=== PATIENT | female | born 1990 | race Hispanic/Latino ===

== ENCOUNTER 2023-02-24 11:15 | Inpatient (IN) | payer MEDICAID, SELFPAY ==
[2023-02-24] VITALS (18 sets, daily range): BP systolic 103–128; BP diastolic 65–82; PULSE 78–93; RESP 11–20; TEMP 36.1–36.9; O2SAT 96–99; BMI 31.1
[2023-02-24 11:05] LABS: ROM Internal Control Test YES-OK TO RESULT pt. (Internal QC); ROM Patient Test POSITIVE (Negative)
[2023-02-24] MEDS: Lactated Ringers 1,000 ML 999 ML IV (12:30)
[2023-02-24 13:12] LABS: Absolute Lymphocyte Count 1.33 X10^3/uL (0.83-4.51); Absolute Neutrophil Count 6.1 X10^3/uL (2.0-7.7); Basophil# 0.05 X10^3/uL; Basophil% 0.6 % (0-1); Eosinophil# 0.05 X10^3/uL; Eosinophils% 0.6 % (0-5); Hematocrit 37.3 % (37-47); Lymphocyte # 1.33 X10^3/ul (0.83-4.51); Lymphocyte % 16.6 % (19-41); Mean Corp Hgb Conc 32.2 g/dL (32-36); Mean Corpuscular Hgb 27.2 pg (27.0-32.0); Mean Corpuscular Volume 84.6 fL (81-99); Mean Platelet Vol. 12.2 fl (6.2-12.0); Monocyte# 0.46 X10^3/uL; Monocyte% 5.7 % (0-10); NRBC Flagged by Analyzer 0 % (0-5); Neutrophil # 6.06 X10^3/uL (2.7-7.7); Neutrophil % 75.6 % (47-70); Platelet Count 239 K/mm3 (150-450); RBC Distribution Width CV 15.8 % (11.6-14.6); RBC Distribution Width SD 48.3 fl (35.1-43.9); Red Blood Count 4.41 M/mm3 (4.2-5.4)
[2023-02-24] MEDS: Lactated Ringers 1,000 ML 150 ML IV ×2 (13:38→21:20)
[2023-02-24 14:12] LABS: Syphilis Antibodies Non-reactive
[2023-02-24] MEDS: Acetaminophen 500 MG Tablet 1000 MG PO ×2 (15:24→21:12)
[2023-02-24] MEDS: Sodium Citrate/Citric Acid 30 ML UDC PO (15:24)
--- NOTE | 2023-02-24 15:31 | PCM.HP.OB ---
HPI - General General Date of Admission: 02/24/23 Date of Service: 02/24/23 HPI Narrative FRANCISCO ROBBINS, is a 33 F who presents with LOF. Maternal Data Information Final SOUTH: 03/06/23 Gestational age: 38&4 PFSH PFSH Medical History History of pre-term labor Home Medications [id number] 1 mg tablet 1 tab PO DAILY Check with primary doctor 02/24/23 [History Last Taken Unknown] Allergy/AdvReac Type Severity Reaction Status Date / Time No Known Allergies Allergy Verified 02/24/23 12:58 Surgical History Previous section Social History Smoking Status: Never smoker History Elective abortions Hx Para 1 Spontaneous abortions Hx # Term Pregnancies Ectopic pregnancies Hx # Pregnancies Multiple births # of living children Vital Signs Vital Signs Vital Signs: 02/24/23 10:45 02/24/23 10:46 02/24/23 10:46 Temperature 98.4 F Temperature Source Pulse Rate 86 Respiratory Rate Blood Pressure 128/81 H Blood Pressure Mean BP Systolic 128 BP Diastolic 81 Blood Pressure Source Blood Pressure Position Blood Pressure Location Pulse Ox Oxygen Delivery Method 02/24/23 12:54 02/24/23 12:54 02/24/23 12:53 Temperature 98.2 F Temperature Source Pulse Rate 78 Respiratory Rate Blood Pressure 122/77 H Blood Pressure Mean BP Systolic 122 BP Diastolic 77 Blood Pressure Source Blood Pressure Position Blood Pressure Location Pulse Ox Oxygen Delivery Method 02/24/23 12:40 Temperature 98.2 F Temperature Source Temporal Pulse Rate 78 Respiratory Rate 16 Blood Pressure 122/77 H Blood Pressure Mean 92 BP Systolic BP Diastolic Blood Pressure Source Monitor Blood Pressure Position Semi-Fowlers Blood Pressure Location Right Arm Pulse Ox 99 Oxygen Delivery Method Room Air Weight Weight: 170 lb Body Mass Index (BMI) 31.1 Physical Exam Const alert, oriented x3 and no apparent distress Chest inspection of chest normal Resp normal respiratory effort GI soft to palpation, non-tender and non-distended Inspection: gravid external exam normal Labs Labs Labs: Blood Type O POSITIVE Antibody Screen NEGATIVE Hct 37.3 % (37-47) Hgb 12.0 g/dL (12.0-15.0) Syphilis Total Ab Non-reactive See [facility] H&P Assessment & Plan (1) Previous section: COMMENT: @ 38&4 (2) SROM (spontaneous rupture of membranes): PLAN: Plan Admit to L&D SROM - ROM+ positive MOD - repeat , counseled on R/B/A Routine care
[2023-02-24] MEDS: Cefazolin 2 GM in 0.9% Normal Saline 100 ML IV (15:42)
--- NOTE | 2023-02-24 16:37 | OP.PCM_ITS ---
Maternal Data Information Final SOUTH: 03/06/23 Gestational age: 38&4 Details Operative Information Date of Procedure: 02/24/23 Pre-Operative Diagnosis: (1) Prior section (20 SROM Post-Operative Diagnosis: Same Indications for : Repeat Elective Indications Narrative: The patient was taken to the operating room where spinal anesthesia was placed & found to be adequate. She was prepped and draped in the dorsal supine position with a leftward tilt. A Pfannenstiel skin incision was made approximately 2 cm above the symphysis pubis & scar from prior incision excised. Incision was then carried through to the underlying fascia with the scalpel. The fascia was incised incised in the midline and extended laterally with the An scissors. The rectus muscles were in the midline and the peritoneum was entered carefully and bluntly. The peritoneal incision was stretched and the bladder blade was inserted. Vesicouterine peritoneum was tented up, incised & then bladder flap created gently. The uterine incision was made in a low transverse fashion with the scalpel and extended superiorly and inferiorly with blunt dissection. The infant's head was brought to the incision in the flexed position and delivered without difficulty. The head was gently guided to allow delivery of the anterior and posterior shoulders. The body then delivered with fundal pressure in the standard fashion. The 3VC cord was clamped and cut in delayed fashion. The infant was handed off to the waiting md pediatric allergist. The placenta was delivered with fundal massage and gentle traction in the standard fashion. The uterus was exteriorized and cleared of clots and debris. The uterine incision was closed with #1 Vicryl suture in a running locked fashion. 2 additional figure of eight sutures were placed over the uterine incision to obtain excellent hemostasis. The incision was examined and was found to be hemostatic. The uterus was returned to the abdominal cavity. After irrigating Sheryl was placed over the uterine incision as some areas were denuded (but hemostatic). The peritoneum was closed with vicryl suture in running fashion The rectus muscle was examined and any bleeding was Bovie cauterized. The fascia was closed with PDS suture in a running standard fashion. The subcutaneous tissue was examining and any bleeding was Bovie cauterized. The subcutaneous tissue was reapproximated with interrupted sutures. The skin was closed in a subcuticular fashion by the HALEY while I was present in the labor & delivery unit. The remainder of the procedure was performed by me with assistance. All sponge, lap, and needle counts were correct. The patient was taken to her room for recovery in a stable condition. Classification: GARCIA Procedure Type: low transverse architectural technician #1: noe cristobal Type of Anesthesia: Spinal Antibiotic Given: Ancef 2 grams IV x1 and Zithromax 500 mg/5 mL X1 Drain: Bennett to straight drain Estimated Blood Loss: 800ml Fluids Replaced: 900ml Procedure Start Time: 15:54 Procedure Stop Time: 16:43 Findings Description of Procedure: Normal maternal uterus and adnexa Presentation: Positive for Vertex Amniotic Membrane Rupture Type: Spontaneous Amniotic Fluid Description: Clear Placental Delivery Description: Expressed Placenta Disposition: [facility] Cord Vessel Description: 3 Vessels Cord Entanglement: None Infant A Gender: Female (Daphnie, weight = 3550g) (1 minute): 9 (5 minute): 9 Delayed Cord Clamping: Yes Complications Complications: None
[2023-02-24] MEDS: Oxytocin 15 Units/NS 250ml 15 UNITS/250 ML IV.SOLN 83 UNITS IV (17:00)
[2023-02-24] MEDS: Ketorolac 30 MG/ML Syringe IV (18:08)
[2023-02-24] MEDS: Ondansetron 4 MG/2 ML Vial IV (21:39)
[2023-02-25] VITALS (7 sets, daily range): BP systolic 107–135; BP diastolic 71–85; PULSE 79–89; RESP 16–18; TEMP 36.2–36.8; O2SAT 95–98
[2023-02-25] MEDS: Ketorolac 30 MG/ML Syringe IV ×2 (00:23→06:01)
[2023-02-25] MEDS: Lactated Ringers 1,000 ML 100 ML IV (02:55)
[2023-02-25] MEDS: Acetaminophen 500 MG Tablet 1000 MG PO ×4 (03:31→21:48)
[2023-02-25 05:21] LABS: Hematocrit 32.8 % (37-47); Hemoglobin 10.7 g/dL (12.0-15.0); Mean Corp Hgb Conc 32.6 g/dL (32-36); Mean Corpuscular Hgb 27.8 pg (27.0-32.0); Mean Corpuscular Volume 85.2 fL (81-99); Mean Platelet Vol. 11.8 fl (6.2-12.0); Platelet Count 204 K/mm3 (150-450); RBC Distribution Width CV 15.8 % (11.6-14.6); RBC Distribution Width SD 48.7 fl (35.1-43.9); Red Blood Count 3.85 M/mm3 (4.2-5.4); White Blood Count 9.7 K/mm3 (4.4-11.0)
--- NOTE | 2023-02-25 08:26 | PN.OBGYN_ITS ---
Subjective Subjective Doing well per patient and nursing staff. Ambulating and taking PO without difficulty. Voiding and passing flatus. Pain controlled. , services for assistance. Denies headache, visual changes, chest pain, shortness of breath, leg pain or increased bleeding. Lochia normal. Objective Data Objective Data Vital Signs: Vital Signs Temp Pulse Resp BP Pulse Ox O2 Del Method 98.2 F 83 17 125/74 H 98 Room Air 02/25/23 04:32 02/25/23 04:32 02/25/23 04:32 02/25/23 04:32 02/25/23 02:58 02/25/23 04:32 Oxygen Delivery Method Room Air Weight: 170 lb Body Mass Index (BMI) 31.1 Intake & Output: Intake and Output for Last 24 Hours 02/23/23 02/24/23 02/25/23 23:59 23:59 23:59 Intake Total 2870 / 2870 715 / 715 Output Total 950 / 950 650 / 650 Balance 1920 / 1920 65 / 65 Lab / Micro Data Result Diagrams: 02/25/23 05:00 Labs: Laboratory Results - last 24 hr 02/24/23 10:55: Vag Amniotic Fld Detect POSITIVE H 02/24/23 12:30: WBC 8.0, RBC 4.41, Hgb 12.0, Hct 37.3, MCV 84.6, MCH 27.2, MCHC 32.2, RDW Std Deviation 48.3 H, RDW Coeff of Gale 15.8 H, Plt Count 239, MPV 12.2 H, Immature Gran % (Auto) 0.900, Neut % (Auto) 75.6 H, Lymph % (Auto) 16.6 L, [place] % (Auto) 5.7, Eos % (Auto) 0.6, Baso % (Auto) 0.6, Absolute Neuts (auto) 6.1, Absolute Lymphs (auto) 1.33, Nucleated RBC % 0 02/24/23 12:30: Blood Type O POSITIVE, Antibody Screen NEGATIVE 02/24/23 12:30: Syphilis Total Ab Non-reactive 02/25/23 05:00: WBC 9.7, RBC 3.85 L, Hgb 10.7 L, Hct 32.8 L, MCV 85.2, MCH 27.8, MCHC 32.6, RDW Std Deviation 48.7 H, RDW Coeff of Gale 15.8 H, Plt Count 204, MPV 11.8 ROS Constitutional Constitutional: Reports systems reviewed and no addt'l complaints, except as documented; Denies headache(s) Eyes Eyes: Denies acute decrease in peripheral vision, blurry vision or change in vision ENT HEENT: Reports systems reviewed and no addt'l complaints, except as documented Cardiovascular Cardiovascular: Denies chest pain or dizziness Respiratory/Chest Respiratory/Chest: Denies cough, dyspnea, dyspnea on exertion, shortness of breath at rest or shortness of breath with exertion Gastrointestinal Gastrointestinal: Denies abdominal pain, diarrhea, nausea or vomiting Genitourinary Genitourinary: Denies abdominal discomfort Musculoskeletal Musculoskeletal: Denies limited range of motion Integumentary Integumentary: Reports systems reviewed and no addt'l complaints, except as documented Neurologic Neurologic: Reports systems reviewed and no addt'l complaints, except as documented Psychiatric Psychiatric: Reports systems reviewed and no addt'l complaints, except as documented Endocrine Endocrinology: Reports systems reviewed and no addt'l complaints, except as documented Hematologic/Lymphatic Hematologic/Lymphatic: Reports systems reviewed and no addt'l complaints, except as documented Allergic/Immunologic Allergic/Immunologic: Reports systems reviewed and no addt'l complaints, except as documented Physical Exam Const alert and oriented x3 General Appearance: cooperative Orientation / Consciousness: awake, oriented to person, oriented to place and or iented to time Exam Limitations: no limitations HEENT normocephalic Head and Scalp: normal to inspection, normocephalic and atraumatic Face and Sinus: normal facial exam Eyes General Eye: normal appearance of both eyes Neck full ROM Chest Chest: symmetrical chest wall rise Resp normal respiratory effort and normal air movement Auscultation: clear to auscultation bilaterally Cardio regular rate, regular rhythm, S1 normal heart sound, S2 normal heart sound, no murmurs, no rub, no gallops and no clicks GI normal to inspection, nondistended, normoactive bowel sounds and non-tender Bladder / Kidney Exam: no CVA tenderness Back/Spine normal ROM Extremity normal to inspection and full ROM Skin no rashes or lesions noted Neuro oriented x3, CN's II-XII intact bilaterally and moves all extremities Sensorium / Orientation: awake, alert and oriented to person Motor Exam: clonus absent Deep Tendon Reflexes: Rt Patellar (L4): 2+ and Lt Patellar (L4): 2+ Assessment & Plan (1) Delivery by section: PLAN: Plan 1) POD #1 S/P C/S 2) Pain management 3) I&O 4) Vitals stable 5) Planning D/C home tomorrow
[2023-02-25] MEDS: Senna/Docusate Sodium 1 Tablet PO (09:52)
[2023-02-25] MEDS: Enoxaparin 40 MG/0.4 ML Syringe SC (09:52)
[2023-02-25] MEDS: Ibuprofen 600 MG Tablet PO ×2 (12:31→18:29)
[2023-02-26] MEDS: Ibuprofen 600 MG Tablet PO ×3 (00:38→12:14)
[2023-02-26 02:30] VITALS: BP 114/70; PULSE 79; RESP 18; TEMP 36.9
[2023-02-26] MEDS: Acetaminophen 500 MG Tablet 1000 MG PO ×2 (04:01→10:06)
[2023-02-26 09:35] VITALS: BP 118/84; PULSE 83; RESP 16; TEMP 36.6; O2SAT 98
--- NOTE | 2023-02-26 10:05 | PCM.PN.OB ---
Subjective Subjective Doing well per patient and nursing staff. Ambulating and taking PO without difficulty. Voiding and passing flatus. Pain controlled. , services for assistance. Denies headache, visual changes, chest pain, shortness of breath, leg pain or increased bleeding. Lochia normal. Objective Data Objective Data Vital Signs: Vital Signs Temp Pulse Resp BP Pulse Ox O2 Del Method 97.8 F 83 16 118/84 H 98 Room Air 02/26/23 09:35 02/26/23 09:35 02/26/23 09:35 02/26/23 09:35 02/26/23 09:35 02/26/23 09:35 Oxygen Delivery Method Room Air Weight: 170 lb Body Mass Index (BMI) 31.1 Intake & Output: Intake and Output for Last 24 Hours 02/24/23 02/25/23 02/26/23 23:59 23:59 23:59 Intake Total 2870 / 2870 1453.33 / 1453.33 0 / 0 Output Total 950 / 950 1100 / 1100 Balance 1920 / 1920 353.33 / 353.33 0 / 0 Lab / Micro Data Result Diagrams: 02/25/23 05:00 ROS Constitutional Constitutional: Reports systems reviewed and no addt'l complaints, except as documented; Denies headache(s) Eyes Eyes: Denies acute decrease in peripheral vision, blurry vision or change in vision ENT HEENT: Reports systems reviewed and no addt'l complaints, except as documented Cardiovascular Cardiovascular: Denies chest pain or dizziness Respiratory/Chest Respiratory/Chest: Denies cough, dyspnea, dyspnea on exertion, shortness of breath at rest or shortness of breath with exertion Gastrointestinal Gastrointestinal: Denies abdominal pain, diarrhea, nausea or vomiting Genitourinary Genitourinary: Reports abdominal discomfort Musculoskeletal Musculoskeletal: Denies limited range of motion Integumentary Integumentary: Reports systems reviewed and no addt'l complaints, except as documented Neurologic Neurologic: Reports systems reviewed and no addt'l complaints, except as documented Psychiatric Psychiatric: Reports systems reviewed and no addt'l complaints, except as documented Endocrine Endocrinology: Reports systems reviewed and no addt'l complaints, except as documented Hematologic/Lymphatic Hematologic/Lymphatic: Reports systems reviewed and no addt'l complaints, except as documented Allergic/Immunologic Allergic/Immunologic: Reports systems reviewed and no addt'l complaints, except as documented Physical Exam Const alert and oriented x3 General Appearance: cooperative Orientation / Consciousness: awake, oriented to person, oriented to place and oriented to time Exam Limitations: no limitations HEENT normocephalic Head and Scalp: normal to inspection, normocephalic and atraumatic Face and Sinus: normal facial exam Eyes General Eye: normal appearance of both eyes Neck full ROM Chest Chest: symmetrical chest wall rise Resp normal respiratory effort and normal air movement Auscultation: clear to auscultation bilaterally Cardio regular rate, regular rhythm, S1 normal heart sound, S2 normal heart sound, no murmurs, no rub, no gallops and no clicks GI normal to inspection, nondistended, normoactive bowel sounds and non-tender GI Narrative: Dressing dry and intact appearance of the vagina normal Bladder / Kidney Exam: no CVA tenderness Back/Spine normal ROM Extremity normal to inspection and full ROM Skin no rashes or lesions noted Neuro oriented x3, CN's II-XII intact bilaterally and moves all extremities Sensorium / Orientation: awake, alert and oriented to person Motor Exam: clonus absent Deep Tendon Reflexes: Rt Patellar (L4): 2+ and Lt Patellar (L4): 2+ Assessment & Plan (1) Delivery by section: (2) Lactating mother: (3) Postoperative pain: PLAN: Plan 1) Routine POD #2 2) Pain management 3) I&O 4) VSS 5) 6) Follow u pin 1 week and 6 weeks 7) D/C home
[2023-02-26] MEDS: Senna/Docusate Sodium 1 Tablet PO (10:06)
[2023-02-26] MEDS: Enoxaparin 40 MG/0.4 ML Syringe SC (10:07)
--- NOTE | 2023-02-26 10:07 | PCM.DC.SUM ---
Providers Date of Admission: 02/24/23 Primary Care Physician: Myranda Primary Care Phys Reason For Visit: REPEAT C SECTION Diagnosis Discharge Diagnosis (1) Delivery by section: Status: Acute (2) Lactating mother: Status: Acute Code(s): Z39.1 - Encounter for care and examination of lactating mother (3) Postoperative pain: Status: Acute Code(s): G89.18 - Other acute postprocedural pain Plan 1) Routine POD #2 2) Pain management 3) I&O 4) VSS 5) 6) Follow u pin 1 week and 6 weeks 7) D/C home Medications at Discharge Home Medications zccbertp-[id number]-[id number]-FA 1 mg tablet 1 tab PO DAILY Check with primary doctor 02/24/23 ibuprofen 600 mg tablet 600 mg PO Q6H #0 tabs 02/26/23 oxycodone 5 mg tablet 5 mg PO Q6H 7 days #7 tabs 02/26/23 Hospital Course Summary of Care Provided Hospital Course: Presented on 02/24/23 for repeat LTCS. course uncomplicated. Discharge home on POD #2. Weight / BMI Weight Weight: 170 lb Body Mass Index (BMI) 31.1 ABG / Lab / Microbiology Data Result Diagrams: 02/25/23 05:00 Meaningful Use Info Meaningful Use Diagnoses (Choose all that apply): None applicable Discharge Plan Admission Admit Date/Time: 02/24/23 11:15 Primary Reason for Your Visit: Section Attending Provider: Jayme Perdomo Primary Care Provider: Krishna Physician,No Primary Instructions Patient Instructions: After a , : [place]atch [place] Steps, : Consult Discharge Orders/Prescriptions Prescriptions: New ibuprofen 600 mg Tablet 600 mg PO Q6H Qty: 0 0RF oxycodone 5 mg Tablet 5 mg PO Q6H 7 Days Qty: 7 0RF Continued tkgqlfrb-nbc-Cz-FA 1 mg Tablet 1 tab PO DAILY Referrals / Follow Up: Care Physician,No Primary [Primary Care Provider] - Disposition Disposition (needs filled in before D/C Order can be placed): Home, Self Care
== END 2023-02-26 13:55 | disposition home or self-care (01) | DRG 540 ==
LOC: WPOUT 11:16 → WP 11:16
PROVIDERS: Advanced Practice Midwife; Admitting Provider Obstetrics & Gynecology; Referring Provider Obstetrics & Gynecology; Visit Provider Obstetrics & Gynecology
DX: O34.211 Maternal care for low transverse scar from previous cesarean delivery (principal); Z37.0 Single live birth; Z3A.38 38 weeks gestation of pregnancy
CPT/HCPCS: 59025; 59050; 84112; 85025; 85027; 86780; 86850; 86900; 86901; 99221; J7120; G0378; J2405

== ENCOUNTER 2023-03-23 08:10 | Inpatient (IN) | payer MEDICAID, SELFPAY ==
[2023-03-23 08:11] VITALS: BP 109/68; PULSE 72; RESP 14; TEMP 36.6; O2SAT 100; BMI 27.6
--- NOTE | 2023-03-23 08:30 | EDS_ITS ---
HPI HPI - GI History of Present Illness Chief Complaint: Abd Pain Informant: parent and spouse/S.O. Narrative Narrative: History is through patient and through . Patient does not speak significant [place]. prefers to translate and she is comfortable with this. He speaks excellent [place]. Evidently about 12 hours ago she started get some epigastric pain. She has had nausea. She has now had a couple episodes of vomiting without blood. Mild soft bowel movement but not diarrhea. No pain lower in the pelvis. She evidently was seen at urgent care and they sent her over here concerned about a blood clot. When they asked, she had stated that when the pain was bad and she vomited she almost felt short of breath. But that was only during that episode. She does not feel short of breath she is not coughing she has no hemoptysis. No chest pain. No leg pain or swelling. Never had a history of DVT or PE. She is not tachycardic tachypneic or hypoxic. She did deliver through on the 13th of last month which was 28 days ago. They ate chicken and macaroni last night but others feel good. She has not had myalgias or fevers. She is feeling a little bit better right now. No chronic medical conditions Only medicines have been vitamins No allergies Surgery as above Patient is currently breast-feeding. PFSH PFSH Medical History no medical history Allergy/AdvReac Type Severity Reaction Status Date / Time No Known Allergies Allergy Verified 03/23/23 08:12 Social History Smoking Status: Former smoker ROS ROS ED ROS Narrative A complete review of systems was performed and is negative except as documented in the history of present illness. Some specific details below. Constitutional: No recent fevers or chills. No malaise or myalgias. EYE: No visual complaints or pain. ENT: No difficulty swallowing. Mild GERD symptoms. No swelling. No pain. CV: No chest pain or palpitations. No syncope or presyncope. Respiratory: No dyspnea except with the episode of increased pain and vomiting as in history of present illness. No hemoptysis. No difficulty taking breaths. No pain with a deep breath. GI: Please see history of present illness. : No frequency dysuria or hematuria. No discharge. Her wound has been healing well. She last saw her OB physician 1 week ago and she felt everything was doing quite well. Musculoskeletal: No recent trauma. No pains. Skin: No rash. Nondiaphoretic. Neuro: No weakness or numbness. Endocrine: No polyuria or polydipsia. EXAM Physical Exam Narrative Exam Narrative: CONSTITUTIONAL: Patient is nontoxic in appearance. The patient looks comfortable. HEENT: No notable trauma. Mucous membranes moist. No indication of pain with swallowing. EYES: No conjunctival injection. No proptosis. No pallor. CARDIOVASCULAR: Regular rate. Regular rhythm. No notable murmur. No JVD. RESPIRATORY: No respiratory distress. Breathing is unlabored. No wheezes. No rhonchi. No rales. No pain with a deep breath. Saturations are normal at 100% on room air showing no hypoxia. GASTROINTESTINAL: Not distended. Bowel sounds are normal. She does have mild epigastric tenderness but no guarding. No rebound. No palpable mass. No bruit. No tenderness in the right upper quadrant. Her incision is actually healing quite well. There is no herniation. There is no redness. No drainage. It is fully sealed over. It is not tender at all in the lower abdomen or pelvis. GENITOURINARY: No tenderness over the bladder. No CVA tenderness. MUSCULOSKELETAL: Atraumatic. No peripheral edema. No cord. No tenderness along the deep venous system. No asymmetry. NEUROLOGICAL: Patient is alert and appropriate. No focal deficit noted. SKIN: No noted rashes. No diaphoresis. PSYCHIATRIC: Patient is calm. Mood is appropriate. Const Vital Signs: 03/23/23 08:11 03/23/23 10:55 Temperature 97.8 F Temperature Source Temporal Pulse Rate 72 64 Respiratory Rate 14 16 Blood Pressure 109/68 112/77 Blood Pressure Mean 81 88 Pulse Ox 100 100 Oxygen Delivery Method Room Air Room Air MDM MDM MDM Narrative Medical decision making narrative: ThisPatient CBC shows no elevation of white count. Hemoglobin and platelets are normal. Electrolytes show no marked abnormalities. Minimal elevation of the BUN to creatinine ratio and she was given IV fluids. Glucose was just mildly elevated at 108. LFTs show elevation of bilirubin AST ALT and alkaline phosphatase. Lipase was normal With her upper abdominal pain elevated liver function test and being we did order ultrasound. My independent interpretation of the ultrasound images show gallbladder with sludge and a large number of shadowing stones. Gallbladder wall normal thickness was approximately 2 mm. Final reading of ultrasound is pending Final reading gallbladder wall about 2.9 mm. But there is no pericholecystic fluid, dilated duct, or sonographic Calle sign. I rechecked the patient. She states she just is some pain. There is really no significant tenderness now though. Her nausea has improved. I have concerns with her being , upper abdominal pain, elevated liver function test and the ultrasound results. I discussed the case with surgeon, Dr. Valdivia. He came down and saw and evaluated the patient. Plan will be to place in observation. The concern is that she has developed pain nausea when she is with abnormal liver function test and an abnormal ultrasound of the gallbladder. Lab Data Attestation: I reviewed the patient's lab results. Labs: Laboratory Results - last 24 hr 03/23/23 03/23/23 08:46 08:46 WBC 9.3 RBC 4.73 Hgb 12.7 Hct 40.4 MCV 85.4 MCH 26.8 L MCHC 31.4 L RDW Std Deviation 44.9 H RDW Coeff of Gale 14.4 Plt Count 304 MPV 11.7 Immature Gran % (Auto) 0.500 Neut % (Auto) 73.2 H Lymph % (Auto) 17.9 L [place] % (Auto) 6.9 Eos % (Auto) 1.1 Baso % (Auto) 0.4 Absolute Neuts (auto) 6.8 Absolute Lymphs (auto) 1.67 Nucleated RBC % 0 Sodium 140 Potassium 3.7 Chloride 106 Carbon Dioxide 23.0 Anion Gap 11 BUN 17 Creatinine 0.73 Estim Creat Clear Calc 86.69 Est GFR (MDRD) Af Amer 117 Est GFR (MDRD) Non-Af 97 BUN/Creatinine Ratio 23.2 H Glucose 108 H Calcium 9.3 Total Bilirubin 1.50 H AST 443 H ALT 274 H Alkaline Phosphatase 274 H Total Protein 7.7 Albumin 3.5 Globulin 4.2 Albumin/Globulin Ratio 0.8 L Lipase 45 Radiography Diagnostic Testing: Clinical Impression(s) from Imaging Studies Gallbladder Ultrasound 03/23/23 09:29 IMPRESSION: Multiple gallstones. Sludge within the gallbladder lumen. Electronically Signed: Dayo Edwards MD at 10:38 EDT , Discharge Plan Dx/Rx/DC Orders Clinical Impression: Biliary colic, Elevated liver function tests, Abdominal pain Disposition Disposition: Acute Care Hospital [facility]
[2023-03-23] MEDS: 0.9% Normal Saline 1,000 ML 1000 ML IV (08:42)
[2023-03-23] MEDS: Ondansetron 4 MG/2 ML Vial IV (08:42)
[2023-03-23] MEDS: Morphine 4 MG/ML Syringe IV (09:00)
[2023-03-23 09:04] LABS: Absolute Lymphocyte Count 1.67 X10^3/uL (0.83-4.51); Absolute Neutrophil Count 6.8 X10^3/uL (2.0-7.7); Basophil# 0.04 X10^3/uL; Basophil% 0.4 % (0-1); Eosinophils% 1.1 % (0-5); Hematocrit 40.4 % (37-47); Hemoglobin 12.7 g/dL (12.0-15.0); Lymphocyte # 1.67 X10^3/ul (0.83-4.51); Lymphocyte % 17.9 % (19-41); Mean Corp Hgb Conc 31.4 g/dL (32-36); Mean Corpuscular Hgb 26.8 pg (27.0-32.0); Mean Corpuscular Volume 85.4 fL (81-99); Mean Platelet Vol. 11.7 fl (6.2-12.0); Monocyte# 0.64 X10^3/uL; Monocyte% 6.9 % (0-10); NRBC Flagged by Analyzer 0 % (0-5); Neutrophil # 6.83 X10^3/uL (2.7-7.7); Neutrophil % 73.2 % (47-70); Platelet Count 304 K/mm3 (150-450); RBC Distribution Width CV 14.4 % (11.6-14.6); RBC Distribution Width SD 44.9 fl (35.1-43.9); Red Blood Count 4.73 M/mm3 (4.2-5.4); White Blood Count 9.3 K/mm3 (4.4-11.0)
[2023-03-23 09:28] LABS: ALB/GLOB Ratio 0.8 RATIO (0.9-2.4); AST(SGOT) 443 U/L (15-37); Alanine Aminotransfer ALT/SGPT 274 U/L (13-56); Albumin, Serum 3.5 g/dL (3.2-5.0); Alkaline Phosphatase 274 U/L (45-117); Anion Gap 11 (5-15); BUN 17 mg/dL (7-18); BUN/Creat Ratio 23.2 RATIO (10-20); Calcium,Total 9.3 mg/dL (8.5-10.1); Chloride 106 mmol/L (98-107); Creatinine, Serum 0.73 mg/dL (0.55-1.02); EST Glomerular Filtration Rate 97 mL/min (>60); Est Glom Filt Rate - Afr Amer 117 mL/min (>60); Estimated Creatinine Clearance 86.69 ml/min; Globulin 4.2 g/dL (2.2-4.2); Glucose 108 mg/dL (74-106); Lipase 45 U/L (13-75); Potassium 3.7 mmol/L (3.5-5.1); Protein, Total 7.7 g/dL (6.4-8.2); Sodium Level 140 mmol/L (136-145)
--- NOTE | 2023-03-23 09:29 | US_ITS ---
STUDY: ABDOMINAL ULTRASOUND - RIGHT UPPER QUADRANT REASON FOR VISIT: Female, 33 years old . Right upper quadrant pain. TECHNIQUE: Ultrasound evaluation of the right upper quadrant was performed with real-time and static barton-scale imaging. TECHNICAL QUALITY: Limited. Examination limited due to the patient?s condition. COMPARISON: None. FINDINGS: Liver: The liver measures cm. There is normal echogenicity of the liver. The bile ducts are within normal limits. There is hepatic color flow. The direction of portal flow is hepatopetal. There is no demonstrated mass lesion. Gallbladder: Normal distended gallbladder. The gallbladder wall measures 2.9 mm. There is a negative sonographic Calle''s sign. There is no pericholecystic fluid. There are multiple echogenic structures within the gallbladder, consistent with multiple gallstones. Sludge is also seen within the gallbladder lumen. Common Bile Duct (C.B.D.): The common bile duct measures 5.1 mm. Pancreas: Normal size of the head, body and tail of the pancreas. There is normal echogenicity of the pancreas. There is no demonstrated pancreatic mass or cyst. Right Kidney: Normal size of the right kidney. The right kidney measures 11.6 cm x 6.2 cm x 4.2 cm. Normal renal cortex. The right cortex measures 1.5 cm. There is a 2.2 cm x 2 cm x 2.1 cm cyst in the upper pole. There is also evidence of a 1.8 cm x 1.77 x 1.5 cm cyst in the medial aspect of the kidney. There is no right hydronephrosis. US/Gallbladder IMPRESSION: Multiple gallstones. Sludge within the gallbladder lumen. Electronically Signed: Dayo Edwards MD at 10:38 EDT ,
--- NOTE | 2023-03-23 10:30 | ED.RN ---
PATIENT AND EDUCATED ON PAIN MEDICATION GIVEN WHILE .
[2023-03-23 10:55] VITALS: BP 112/77; PULSE 64; RESP 16; O2SAT 100
--- NOTE | 2023-03-23 11:53 | PCM.HP.STD ---
HPI - General General Date of Admission: 03/23/23 Date of Service: 03/23/23 Chief Complaint: Acute onset abdominal pain HPI Narrative FRANCISCO JOINER, is a 33 F who presents to [facility] after developing severe upper abdominal pain last evening that failed to improve with time. Patient is Thai-speaking only, but patient's also speaks Macedonian and he provides translation. He states that the pain has been persistent in the upper abdomen, but is significantly improved since receiving pain medication in the emergency department. He also reports a previous episode 1 week ago that was associated with nausea, but was self-limited. Se?ora Pe?a delivered their second daughter early last month and her denies any difficulties with abdominal discomfort throughout the . On presentation the ER, patient underwent work-up that included CMP and CBC. The latter is remarkable for evidence of transaminitis and hyperbilirubinemia. On noting these findings, emergency medicine obtained a right upper quadrant ultrasound which showed a normal-appearing gallbladder containing sludge and gallstones. Common bile duct measured 5.1 mm with this study. Patient's denies any awareness of additional comorbidities and reports that patient's most recent was the second of her 2 abdominal surgeries (the previous operation was also a section). [facility] Medical History no medical history Allergy/AdvReac Type Severity Reaction Status Date / Time No Known Allergies Allergy Verified 03/23/23 08:12 Social History Smoking Status: Former smoker Vital Signs Vital Signs Vital Signs: 03/23/23 08:11 03/23/23 10:55 Temperature 97.8 F Temperature Source Temporal Pulse Rate 72 64 Respiratory Rate 14 16 Blood Pressure 109/68 112/77 Blood Pressure Mean 81 88 Pulse Ox 100 100 Oxygen Delivery Method Room Air Room Air Weight Weight: 151 lb Body Mass Index (BMI) 27.6 Physical Exam Const alert Constitutional Narrative: Anxious and tearful Resp normal respiratory effort GI GI Narrative: Mildly distended, soft, nontender to palpation x4 quadrants, but mild tenderness present in the epigastrium. Well-healing Pfannenstiel incision inferiorly Results Lab / Micro Data Result Diagrams: 03/23/23 08:46 03/23/23 08:46 Labs: Laboratory Results - last 24 hr 03/23/23 08:46: WBC 9.3, RBC 4.73, Hgb 12.7, Hct 40.4, MCV 85.4, MCH 26.8 L, MCHC 31.4 L, RDW Std Deviation 44.9 H, RDW Coeff of Gale 14.4, Plt Count 304, MPV 11.7, Immature Gran % (Auto) 0.500, Neut % (Auto) 73.2 H, Lymph % (Auto) 17.9 L, [place] % (Auto) 6.9, Eos % (Auto) 1.1, Baso % (Auto) 0.4, Absolute Neuts (auto) 6.8, Absolute Lymphs (auto) 1.67, Nucleated RBC % 0 03/23/23 08:46: Sodium 140, Potassium 3.7, Chloride 106, Carbon Dioxide 23.0, Anion Gap 11, BUN 17, Creatinine 0.73, Estim Creat Clear Calc 86.69, Est GFR (MDRD) Af Amer 117, Est GFR (MDRD) Non-Af 97, BUN/Creatinine Ratio 23.2 H, Glucose 108 H, Calcium 9.3, Total Bilirubin 1.50 H, AST 443 H, ALT 274 H, Alkaline Phosphatase 274 H, Total Protein 7.7, Albumin 3.5, Globulin 4.2, Albumin/Globulin Ratio 0.8 L, Lipase 45 Radiology Impression Gallbladder Ultrasound 03/23/23 09:29 IMPRESSION: Multiple gallstones. Sludge within the gallbladder lumen. Electronically Signed: Dayo Edwards MD at 10:38 EDT , Assessment & Plan Assessment/Plan (1) Elevated liver function tests: (2) Biliary colic: (3) Abdominal pain: PLAN: Plan This is a 33-year-old female who presents with acute onset abdominal pain that has persisted since its onset yesterday. She also describes a prior experience of this pain that was associated with significant nausea 1 week ago. ER work-up is notable for transaminitis, hyperbilirubinemia, alkaline phosphatemia, and gallbladder ultrasound showing numerous gallstones and sludge. Significantly, patient's common bile duct is not severely dilated and there is no signs of cholecystitis with patient's ultrasound. However, with her cholestatic pattern of liver function testing and recent prior episode of abdominal discomfort, I believe she is experiencing biliary colic and unfortunately cannot definitively confirm that she does not have a biliary obstruction. To mitigate her risk for further presentations and, most critically cholangitis, I believe this needs to be demonstrated. I have offered her MRCP versus admission with cholecystectomy and intraoperative cholangiogram versus outpatient follow-up with laboratories. I provided my recommendation to proceed with surgery given her multiple pain presentations and a ability to directly assess her duct work through cholangiography. I believe that she is at a high risk of recurrent symptoms and potential cholecystitis/choledocholithiasis (if not already present) based on ultrasound findings of numerous stones and present evidence of this cholestatic pattern. With this information, patient and her agree to proceed with admission and surgery. Therefore plan will be as follows: Neuro: As needed acetaminophen (narcotics can be added if needed but patient is currently breast-feeding) Pulm/CV: Mobilize as tolerated no current issues FEN/GI: Repeat CMP in a.m., clear liquid diet till midnight then n.p.o. for surgery, plan for lap tyra with IOC 03/24/2023 : No current issues Heme/ID: Trend CBC, empirically institute Zosyn on the account of possible biliary duct obstruction Endo: No current issues Proph: SCDs Dispo: Admit to observation Charges/Coding Visit Charges Inpatient E&M: 24546 Init Hosp L2
[2023-03-23 12:05] VITALS: BP 115/71; PULSE 76; RESP 16; TEMP 36.6; O2SAT 98
--- NOTE | 2023-03-23 12:07 | ED.RN ---
PT OBSERVED BREAST FEEDING AFTER RECEIVING NARCOTICS DESPITE BEING EDUCATED TO PUMP AND DUMP FOR APPROX 4-6 HRS AFTERWARDS. EDUCATED FATHER AND PT TO WATCH INFANT FOR EXCESSIVE SLEEPINESS OR DECREASED RESPIRATIONS.
[2023-03-23 13:10] VITALS: BP 111/82; PULSE 64; RESP 16; TEMP 36.4; O2SAT 100
[2023-03-23 13:13] VITALS: BMI 28.0
[2023-03-23] MEDS: 0.9% Saline Lock 10 ML Syringe IV (14:03)
[2023-03-23] MEDS: 0.9% Normal Saline 1,000 ML 100 ML IV ×2 (14:03→23:08)
--- NOTE | 2023-03-23 15:25 | NURSING ---
IBCLC called for consultation by bedside LANDON Weiss. Patient was advised in ER to pump and dump her milk due to Morphine/narcotic administration. The patient did not have a pump with her at that time to be able to pump nor did she have formula for the baby. Her did leave to get formula if needed but parents preference would be to utilize mother's breastmilk if able. MAR reviewed with JOURNEYMAN PLUMBER Christin and LANDON Weiss. Reviewed information on morphine in medication and mothers' milk resource 2022 in which Morphine is labeled an L3-Probably Compatible with listed studies and explanation. Information given to family that with the dosing prescribed pumping and dumping would not be absolute. Peak for morphine is 0.5- 1hr, 1.5-2 hours is the listed half life. For extra precaution parents plan to wait 2 hours if and when she receives the medication again. A pump given to the mother at this time so she would be able to pump if desired. Explained to patient that in preparation for surgery tomorrow she could pump after feedings to start storing milk for her to feed while she is in surgery. Under normal circumstances pumping and dumping is not needed post surgery once mother is alert and awake and again depending on pain medications used and half life. WP and IBCLC number left for patient.
[2023-03-23 17:45] VITALS: BP 109/69; PULSE 67; RESP 16; TEMP 36.6; O2SAT 99
[2023-03-23 23:16] VITALS: BP 111/71; PULSE 65; RESP 16; TEMP 37; O2SAT 98
[2023-03-24] VITALS (11 sets, daily range): BP systolic 95–129; BP diastolic 63–91; PULSE 58–83; RESP 12–16; TEMP 36.2–37.6; O2SAT 93–100; BMI 28.0
--- NOTE | 2023-03-24 04:57 | NURSING ---
Mother and baby observed co-sleeping. Educated on sleeping recommendations. Mother allowed this RN to put baby in bassinet.
[2023-03-24 06:32] LABS: Absolute Lymphocyte Count 1.88 X10^3/uL (0.83-4.51); Absolute Neutrophil Count 3.8 X10^3/uL (2.0-7.7); Basophil# 0.05 X10^3/uL; Basophil% 0.7 % (0-1); Eosinophil# 0.74 X10^3/uL; Eosinophils% 10.8 % (0-5); Hematocrit 38.9 % (37-47); Hemoglobin 11.8 g/dL (12.0-15.0); Lymphocyte # 1.88 X10^3/ul (0.83-4.51); Lymphocyte % 27.3 % (19-41); Mean Corp Hgb Conc 30.3 g/dL (32-36); Mean Corpuscular Hgb 26.7 pg (27.0-32.0); Monocyte# 0.37 X10^3/uL; Monocyte% 5.4 % (0-10); NRBC Flagged by Analyzer 0 % (0-5); Neutrophil % 55.2 % (47-70); Platelet Count 236 K/mm3 (150-450); RBC Distribution Width CV 14.7 % (11.6-14.6); RBC Distribution Width SD 47.8 fl (35.1-43.9); Red Blood Count 4.42 M/mm3 (4.2-5.4); White Blood Count 6.9 K/mm3 (4.4-11.0)
[2023-03-24 07:09] LABS: AST(SGOT) 173 U/L (15-37); Alanine Aminotransfer ALT/SGPT 229 U/L (13-56); Alkaline Phosphatase 232 U/L (45-117); Anion Gap 5 (5-15); BUN 12 mg/dL (7-18); BUN/Creat Ratio 15.6 RATIO (10-20); Chloride 115 mmol/L (98-107); Creatinine, Serum 0.77 mg/dL (0.55-1.02); EST Glomerular Filtration Rate 92 mL/min (>60); Est Glom Filt Rate - Afr Amer 111 mL/min (>60); Estimated Creatinine Clearance 82.19 ml/min; Globulin 3.1 g/dL (2.2-4.2); Glucose 93 mg/dL (74-106); Potassium 3.5 mmol/L (3.5-5.1); Protein, Total 6.1 g/dL (6.4-8.2); Sodium Level 143 mmol/L (136-145)
[2023-03-24] MEDS: 0.9% Normal Saline 1,000 ML 100 ML IV (08:29)
--- NOTE | 2023-03-24 08:48 | CASEMGMT ---
RN informed SW that family is not concerned with living situation. RN admits to accidentally hitting the wrong button. Barb Perkins [employer] SUPERVISOR [employer]ER
--- NOTE | 2023-03-24 09:38 | NURSING ---
0830- IBCLC Shaun, calling Aguila, primary RN to see if there are any concerns at this time. Pt. reports that she nursed overnight without complication, didn't have to pump or do any supplemental pumping. If pt. pumps, RN can send milk to for storage.
[2023-03-24 11:19] LABS: Color, Urine Yellow (Yellow); Glucose, Dipstick Normal (Normal); Internal QC Validated? YES +Cl - CLEAR BKGD; Ketone-Dipstick Negative (Negative); Leukocyte Esterase-Dipstick 25 /ul (Negative); Nitrite-Dipstick Negative (Negative); Occult Blood-Urine 150 /ul (Negative); Protein-Dipstick Negative (Negative); Urine Bilirubin Dipstick Negative (Negative); Urine Clarity Clear (Clear); Urine Urobilinogen Normal (Normal)
[2023-03-24 11:23] LABS: Pregnancy, Urine Negative Negative
[2023-03-24 11:26] LABS: Bacteria RARE /hpf (None Seen); Mucous, Urine RARE /hpf (<or=2+); Red Blood Cells-Urine 0-5 SEEN /hpf (0-5); Squamous Epithelial Cells - UA 0-5 SEEN /hpf (5-10); White Blood Cells 0-5 SEEN /hpf (0-5)
[2023-03-24] MEDS: 0.9% Normal Saline 1,000 ML 15 ML IV (13:47)
--- NOTE | 2023-03-24 14:30 | GALL_PTH ---
PATIENT: FRANCISCO TAVERAS LOC: [facility] U#:[id number] AGE/SX: 33/F ROOM: [facility]315 RE03/24/[address]: Dr. Ryan Valdivia MD : 1990 BED: 1 DIS: 03/25/2023 SPEC #: [id number] RECD: 03/24/23 17:03 STATUS: LAURA REKim #: [id number] MARSHALL: 03/24/23 14:[address]: Ryan Valdivia DEPT: SURGICAL PATHOLOGY RECD BY: Lydia Barone ENTERED: 03/25/23 09:31 SP TYPE: RAYMUNDO RUSSELL DR: No Primary Care Phys Tissues: Gallbladder, NOS Procedures: Surgery Specimen Level III HEADER OPERATION: Laparoscopic cholecystectomy with IOC PRE-OP DIAGNOSIS: Elevated liver function tests, biliary colic, abdominal pain TISSUE SUBMITTED: Gallbladder MICROSCOPIC DIAGNOSIS Gallbladder, cholecystectomy: Cholesterolosis, chronic cholecystitis and cholelithiasis. AM:enrico 03/28/2023 MICROSCOPIC DESCRIPTION Slides are reviewed. GROSS DESCRIPTION Received is one container labeled with the patient's name and designated gallbladder. The specimen consists of a gallbladder measuring 12.0 cm in length and up to 4.0 cm in diameter. The external surface is pink-hyman, smooth and glistening for the most part. Focally it is granular, hemorrhagic and contains cautery artifact. The gallbladder contains green-yellow mucoid bile and multiple round, green stones measuring in aggregate 4.0 x 3.0 x 1.0 cm and 0.1 to 1.0 cm in greatest dimension. The mucosa also shows several yellowish streaks consistent with cholesterolosis. The gallbladder wall measures up to 0.2 cm in thickness. Thread Dresser sections from the gallbladder and the cystic duct are submitted in one cassette. / SJ:enrico 03/25/2023 TC:3 CPT: 30664
--- NOTE | 2023-03-24 15:40 | RAD_ITS ---
CLINICAL HISTORY: Female, 33 years old. Pain PROCEDURE: CHOLANGIOGRAM - intraoperative FLUOROSCOPY TIME (if supplied): 27.7 seconds Placement of the catheter and the procedure were performed by: Operating surgeon Fluoroscopy was provided by cytotechnologist/histotechnologist, who was present in the room time of the procedure. Findings:) Fluoroscopic guided intraoperative cholangiogram was performed in the anterior projection. 48 fluoroscopic guided images were obtained during the study to document intraoperative findings. For more complete information recommend correlation with surgical notes RAD/Cholangiogram/ O R,Initial IMPRESSION: Fluoroscopic guided intraoperative cholangiogram Electronically Signed: Dex Hernández MD at 20:14 EDT ,
[2023-03-24] MEDS: Bupivacaine 0.25% 30 ML Vial (16:49)
--- NOTE | 2023-03-24 16:59 | PCM.OPRPT ---
Report of Operation Date of Procedure: 03/24/23 Pre-Operative Diagnosis: 1. Biliary colic 2. Transaminitis and hyperbilirubinemia concerning for choledocholithiasis Post-Operative Diagnosis: 1. Biliary colic 2. Acute cholecystitis Surgery/Procedure Performed:: Laparoscopic cholecystectomy with intraoperative cholangiogram Description of Surgical Findings:: ? Numerous fine adhesions of the omentum to the gallbladder infundibulum and body ? Normal biliary anatomy with cholangiogram showing cystic duct flowing through the common bile duct into the duodenum without obstruction. Retrograde flow through the common hepatic and right and left hepatic ducts Surgeon: Ryan Valdivia research chemical engineer: Dalia Yi Type of Anesthesia: General/Supplemental Anesthesiologist: Sergio Yuan Specimen's removed: Gallbladder Drains: none Estimated Blood Loss (mL): 50 Description of Procedure: After proper identification in the preoperative holding area the patient was brought to the operating room where positioned supine on the operating room table. Preoperatively SCDs were placed and antibiotics were administered. General anesthesia was then induced. Patient's abdomen was prepped and draped in usual sterile fashion. A formal timeout was conducted to confirm both patient and the procedure. Procedure was begun with a supraumbilical incision which was extended deeply down to the level of the fascia. The fascia was elevated and incised, as well as the peritoneum. A finger sweep was performed to ensure there were no underlying adhesions and a 12 mm balloon trocar was inserted. Pneumoperitoneum was established at 15 mmHg. 3 additional trocars were placed in the epigastrium and in the right upper quadrant (3 x 5 mm). Inspection of the peritoneum revealed no inadvertent injury to the viscera below. The gallbladder was visualized with mild inflammation?increasingly dense approaching the gallbladder infundibulum. The gallbladder fundus was then grasped and elevated cephalad. Then, using careful dissection the peritoneum was opened and the structures of the hepatocystic triangle were delineated. Once the critical view of safety was obtained, the cystic duct was singly clipped and partially divided. Using an Lopez Martin clamp, a cholangiocatheter was fed into the proximal segment of the cystic duct and clamped into place. Under fluoroscopy a cholangiogram was then obtained showing a standard length cystic duct flowing into a common bile duct with unobstructed antegrade flow of contrast into the duodenum. There was also retrograde flow through the common hepatic duct into the right and left hepatic ducts. Satisfied with this result, the proximal cystic duct was triply clipped and sharply divided. The same process was used for the cystic artery. Using additional blunt dissection I isolated a smaller posterior cystic artery and clipped this too and divided it. The gallbladder was then removed from the gallbladder fossa with the use of electrocautery. Selective electrocautery was used to obtain hemostasis in the gallbladder fossa. The gallbladder was placed in an Endo Catch bag and removed from the peritoneum. Morison's pouch was irrigated and the effluent was suctioned free of the peritoneum. Hemostasis was again confirmed. Pneumoperitoneum was evacuated and the fascia of the 12 mm port sites was closed with #1Vicryl in a [id number] fashion. A total of 30 mL of anesthetic was injected at the port sites for postoperative pain control. The skin of each port site was then closed in subcuticular fashion using 4-0 Monocryl. Steri-Strips and bandages were applied as dressings. Patient tolerated the procedure well without any apparent complications. On emergence from their anesthetic the patient was taken to PACU for ongoing recovery. Grafts/Implants Used: N/A Complications NA Admit VTE Documentation VTE Mechan Device Prophylaxis: SCD's Procedures Digestive 40xxx-49xxx: 09129 Laparo cholecystectomy/graph
--- NOTE | 2023-03-24 18:30 | NURSING ---
Report called to [facility] Radha3 RN. RN to accompany and baby to [facility] and PACU to [place] [facility] as patient has been transferred from PCU to [facility]
--- NOTE | 2023-03-24 19:36 | SUR.PHASEII ---
HELD IN PACU [id number] FOR BED CHANGE FROM PCU ROOM TO [facility].
[2023-03-24] MEDS: Acetaminophen 325 MG Tablet 650 MG PO (20:01)
[2023-03-25 00:10] VITALS: BP 115/76; PULSE 85; RESP 16; TEMP 36.4; O2SAT 99
[2023-03-25 04:11] VITALS: BP 115/90; PULSE 72; RESP 16; TEMP 36.6; O2SAT 98
[2023-03-25] MEDS: Acetaminophen 325 MG Tablet 650 MG PO ×2 (04:21→12:25)
[2023-03-25 04:57] VITALS: BP 115/90; PULSE 72; RESP 16; TEMP 36.6; O2SAT 98
[2023-03-25 07:30] VITALS: O2SAT 96
--- NOTE | 2023-03-25 08:20 | NURSING ---
Late Entry for 03/25/23 at 0820: IBCLC Mariah calling primary RN for pt to see when a good time would be for IBCLC to come see pt d/t questions and concerns noted overnight. At 0910, RN called back stating family was ready for IBCLC visit. IBCLC to room to huddle with family and RN to address any questions and concerns about medications and , protecting pt's milk supply, nursing, and general questions. Plan going forward is for pt. to breastfeed or pump every 2-3 hours and she can feed any pumped milk to infant from a bottle. Informed family they can call out for IBCLC if any further questions or concerns arise throughout the day.
--- NOTE | 2023-03-25 08:31 | DCINST_ITS ---
Discharge Instructions Diet Discharge Diet: No restrictions Activity Discharge Activity: May Not Drive (May not drive while taking narcotic pain medications) and May Shower (May begin showering 48hours postop. Please avoid baths or submerging surgical incisions before skin is completely healed.) May shower in (days): 2 May resume sexual activity in: 2 weeks Ice area for (Minutes): 20 Lifting Restrictions: Limit lifting to <15lbs for 2 weeks following surgery Dressing / Incision Call your doctor if your incision/area has: Sudden Increased Bleeding, Increased Pain/ Swelling, Increased Redness, Foul Smelling Discharge and Swelling at the incision site Call your doctor if you observe: Fever of 101 or Higher, Inability to urinate, Inability to have a bowel movement and Uncontrolled pain Suture Line Care: Avoid Pulling/Pushing Remove Dressing in: 2 days (Please leave steri strips (medical tape) in place until they fall off spontaneously or are removed at your follow-up appointment) Cleanse incision/area with: Keep Dressing Clean & Dry Follow Up Care Please Follow Up With: Ryan Valdivia MD When: 7-10 days postop Test Results: Test results from this visit will be discussed in further detail at your follow- up appointment, if applicable. Discharge Plan Admission Admit Date/Time: 03/24/23 09:04 Primary Reason for Your Visit: Gallbladder removal Attending Provider: Ryan Valdivia Primary Care Provider: Care PhysicianMyranda Primary Discharge Orders/Prescriptions Prescriptions: New oxycodone 5 mg Tablet 5 mg PO Q6H PRN PRN (Reason: Pain Score 6-10) 2 Days Qty: 7 0RF Continued [id number] 1 mg Tablet 1 tab PO DAILY ibuprofen 600 mg Tablet 600 mg PO Q6H Qty: 0 0RF Discontinued oxycodone 5 mg Tablet 5 mg PO Q6H 7 Days Qty: 7 0RF Referrals / Follow Up: Care Physician,Myranda Primary [Primary Care Provider] - Disposition Disposition (needs filled in before D/C Order can be placed): Home, Self Care
--- NOTE | 2023-03-25 08:32 | PCM.DC.SUM ---
Providers Date of Admission: 03/24/23 Primary Care Physician: No Primary Care Phys Reason For Visit: ABDOMINAL PAIN, BILIARY COLIC Diagnosis Discharge Diagnosis (1) Elevated liver function tests: Status: Acute Code(s): R79.89 - Other specified abnormal findings of blood chemistry (2) Biliary colic: Status: Acute Code(s): K80.50 - Calculus of bile duct without cholangitis or cholecystitis without obstruction (3) Abdominal pain: Status: Acute Code(s): R10.9 - Unspecified abdominal pain Plan This is a 33-year-old female who presents with acute onset abdominal pain that has persisted since its onset yesterday. She also describes a prior experience of this pain that was associated with significant nausea 1 week ago. ER work-up is notable for transaminitis, hyperbilirubinemia, alkaline phosphatemia, and gallbladder ultrasound showing numerous gallstones and sludge. Significantly, patient's common bile duct is not severely dilated and there is no signs of cholecystitis with patient's ultrasound. However, with her cholestatic pattern of liver function testing and recent prior episode of abdominal discomfort, I believe she is experiencing biliary colic and unfortunately cannot definitively confirm that she does not have a biliary obstruction. To mitigate her risk for further presentations and, most critically cholangitis, I believe this needs to be demonstrated. I have offered her MRCP versus admission with cholecystectomy and intraoperative cholangiogram versus outpatient follow-up with laboratories. I provided my recommendation to proceed with surgery given her multiple pain presentations and a ability to directly assess her duct work through cholangiography. I believe that she is at a high risk of recurrent symptoms and potential cholecystitis/choledocholithiasis (if not already present) based on ultrasound findings of numerous stones and present evidence of this cholestatic pattern. With this information, patient and her agree to proceed with admission and surgery. Therefore plan will be as follows: Neuro: As needed acetaminophen (narcotics can be added if needed but patient is currently breast-feeding) Pulm/CV: Mobilize as tolerated no current issues FEN/GI: Repeat CMP in a.m., clear liquid diet till midnight then n.p.o. for surgery, plan for lap tyra with IOC 03/24/2023 : No current issues Heme/ID: Trend CBC, empirically institute Zosyn on the account of possible biliary duct obstruction Endo: No current issues Proph: SCDs Dispo: Admit to observation Medications at Discharge Home Medications claxdgae-lym-Xk-FA 1 mg tablet 1 tab PO DAILY Check with primary doctor 02/24/23 ibuprofen 600 mg tablet 600 mg PO Q6H #0 tabs 02/26/23 oxycodone 5 mg tablet 5 mg PO Q6H PRN PRN Pain Score 6-10 2 days #7 tabs 03/25/23 Hospital Course Operations cholecystecomy (Laparoscopic cholecystectomy with intraoperative cholangiogram 03/24/2023) Procedures None Summary of Care Provided Hospital Course: Patient is a 33-year-old female who is admitted on 03/23/2023 due to presentation of acute onset abdominal pain, and a biochemical work-up demonstrating hyperbilirubinemia and transaminitis and a cholestatic pattern concerning for possible persistent biliary ductal obstruction. Given patient's descriptions of pain with the present symptomology as well as that experienced 1 week prior, I recommended proceeding to the operating room for laparoscopic cholecystectomy with intraoperative cholangiogram. This was undertaken in uncomplicated fashion the early evening of 03/24/2023. Given the later hours and the desire to do monitor patient overnight, she was brought back to the hospital [facility] where she experienced an uneventful recovery. Morning of postoperative day 1 patient was doing well with tolerance of a regular diet and well-controlled postoperative pain with oral medications. Therefore, post hospital expectations were reviewed and discharge instructions were orally given. Neither she nor her had any further questions so discharge to home was granted. Physical Exam Const alert, oriented x3 and no apparent distress General Appearance: cooperative Orientation / Consciousness: awake and oriented to person Resp normal respiratory effort GI GI Narrative: Nondistended, operative dressings intact with minimal bloody strikethrough, soft, mildly tender to palpation over operative site superficially Weight / BMI Weight Weight: 153 lb 6.4 oz Body Mass Index (BMI) 28.0 ABG / Lab / Microbiology Data Result Diagrams: 03/24/23 04:59 03/24/23 04:59 Laboratory: Laboratory Results - last 24 hr 03/24/23 11:20: Urine Color Yellow, Urine Clarity Clear, Urine pH 6.0, Ur Specific [place] 1.010, Urine Protein Negative, Urine Glucose (UA) Normal, Urine Ketones Negative, Urine Occult Blood 150 H, Urine Nitrite Negative, Urine Bilirubin Negative, Urine Urobilinogen Normal, Ur Leukocyte Esterase 25 H, Urine RBC 0-5 SEEN, Urine WBC 0-5 SEEN, Ur Squamous Epith Cells 0-5 SEEN, Urine Bacteria RARE, Urine Mucus RARE 03/24/23 11:20: Urine Test Negative Radiography Diagnostic Testing: Radiology Impression Cholangiogram 03/24/23 15:40 IMPRESSION: Fluoroscopic guided intraoperative cholangiogram Electronically Signed: Dex Hernández MD at 20:14 EDT Reading Location ID and State: [address] [place] [address] , Service support , D/C Instructions Discharge Diet: No restrictions May shower in (days): 2 May resume sexual activity in: 2 weeks Ice area for (Minutes): 20 Call your doctor if your incision/area has: Sudden Increased Bleeding, Increased Pain/ Swelling, Increased Redness, Foul Smelling Discharge and Swelling at the incision site Call your doctor if you observe: Fever of 101 or Higher, Inability to urinate, Inability to have a bowel movement and Uncontrolled pain Suture Line Care: Avoid Pulling/Pushing Cleanse incision/area with: Keep Dressing Clean & Dry Please Follow Up With: Ryan Valdivia MD When: 7-10 days postop Meaningful Use Info Meaningful Use Diagnoses (Choose all that apply): None applicable Discharge Plan Admission Admit Date/Time: 03/24/23 09:04 Primary Reason for Your Visit: Gallbladder removal Attending Provider: Ryan Valdivia Primary Care Provider: Care Physician,No Primary Discharge Orders/Prescriptions Prescriptions: New oxycodone 5 mg Tablet 5 mg PO Q6H PRN PRN (Reason: Pain Score 6-10) 2 Days Qty: 7 0RF Continued xxlrysaf-uzy-Bv-FA 1 mg Tablet 1 tab PO DAILY ibuprofen 600 mg Tablet 600 mg PO Q6H Qty: 0 0RF Discontinued oxycodone 5 mg Tablet 5 mg PO Q6H 7 Days Qty: 7 0RF Referrals / Follow Up: Care Physician,No Primary [Primary Care Provider] - Disposition Disposition (needs filled in before D/C Order can be placed): Home, Self Care Charges/Coding Visit Charges Inpatient E&M: 19553 Disch Hosp
[2023-03-25] MEDS: oxyCODONE 5 MG Tablet PO (09:19)
[2023-03-25] MEDS: 0.9% Saline Lock 10 ML Syringe IV (09:20)
[2023-03-25 10:00] VITALS: BP 109/71; PULSE 69; RESP 14; TEMP 36.7; O2SAT 100
--- NOTE | 2023-03-25 10:09 | CASEMGMT ---
LANDON HIGUERA Assessment: Face to Face with pt for initial transition planning/care coordination assessment. RN DAVIDA introduced self and role at [facility], pt voices understanding and consents to assessment with translating for this RN DAVIDA. Pt is A/O x4, answers questions and relays back to RN DAVIDA. Care providers, pharmacy, and demographics verified/updated. Pt has child in room. Admitting Dx: abdominal pain, biliary colic PCP:Pt denies, they have a PCP who they have in mind. Denies need for local healthcare directory pamphlet. Specialists:Jeannie MANAGER OF PLANNING Preferred Pharmacy: [facility] Retail Insurance: [facility] Prescription Benefit: yes LNOK: Leonel Mcdowell, Living Arrangements: Pt lives with . Home is single story with 10 steps to enter with a rail. Pt reports being I in ADL's and denies concerns at home. Transportation: Pt provides transportation for pt. DME/HHC/SNF: Pt denies having any DME in the home, previous HHC or SNF stays. Pt states no concerns with going home at time of dc. Pt states no further concerns/needs. CM to follow. Advised pt to ask CM if any further question/concerns/needs arise, voices understanding. Pt Goal: Home Plan: Home
[2023-03-25 14:00] VITALS: BP 107/73; PULSE 71; RESP 16; TEMP 36.8; O2SAT 98
== END 2023-03-25 14:05 | disposition home or self-care (01) | DRG 548 ==
LOC: ED 12:05 → PCU 12:15 → MS3 03-25 09:10 → PCU 03-25 09:10
PROVIDERS: Physician Assistant; Admitting Provider Surgery; Emergency Provider Emergency Medicine; Visit Provider Surgery
PROC: (CPT 47610; principal; 2023-03-24 14:10)
DX: O26.63 Liver and biliary tract disorders in the puerperium (principal); K80.62 Calculus of gallbladder and bile duct with acute cholecystitis without obstruction; E80.7 Disorder of bilirubin metabolism, unspecified; O99.285 Endocrine, nutritional and metabolic diseases complicating the puerperium; Z87.891 Personal history of nicotine dependence
CPT/HCPCS: 36415; 74300; 76000; 76705; 80053; 81001; 81025; 83690; 85025; 88304; 99284; J7030; J7040; A4216; J2405; J3490